=== PATIENT | female | born 1995 ===

== ENCOUNTER → 2020-03-16 | Outpatient (CLI) | payer SELFPAY ==
[~2020-03-16] MED LIST: PERCOCET 5MG/325MG TAB ONE
== END ==
LOC: M LDO 17:45
PROVIDERS: ATTEND Obstetrics & Gynecology
DX: O26.892 Other specified pregnancy related conditions, second trimester (principal); R10.30 Lower abdominal pain, unspecified; Z3A.21 21 weeks gestation of pregnancy
CPT/HCPCS: G0378; G0463